=== PATIENT | male | born 1950 | race Caucasian/White ===

== ENCOUNTER → 2019-02-10 18:27 | Outpatient (CLI) | payer MEDICARE | END | disposition home or self-care (01) | LOC: D.LABREF 18:27 | PROVIDERS: ATTEND Urology | DX: R31.9 Hematuria, unspecified (principal) ==

== ENCOUNTER → 2019-03-11 10:00 | Outpatient (CLI) | payer MEDICARE ==
[~2019-03-11 10:00] MED LIST: CYCLOBENZAPRINE10 MG PO; DICLOFENAC SODI50 MG; FLUTICASONE PRO16 GM; LIPITOR20 MG PO; LISINOPRIL20 MG; MOBIC7.5 MG PO; MUCINEX600 MG PO; NORVASC10 MG PO; NYSTATIN ORAL SU5 ML PO; OMEPRAZOLE20 M1 PO; PERCOCET 10-321 EAC1 PO; TRAZODONE HCL150 MG PO; ZANAFLEX2 M1 PO
== END | disposition home or self-care (01) ==
LOC: D.CT 10:00
PROVIDERS: ATTEND Urology
DX: R31.0 Gross hematuria (principal)

== ENCOUNTER 2019-03-13 05:35 | Day surgery (SDC) | payer MEDICARE, OTHER ==
[2019-03-12 13:37] LABS: HEMATOCRIT 38.4 % (42.0-54.0); HEMOGLOBIN 12.9 g/dL (13.5-17.5); MCH 30.6 pg (26.0-34.0); MCHC 33.6 g/dL (31.0-37.0); MEAN PLATELET VOLUME 9.4 fL (7.4-10.4); RBC 4.22 10x6/uL (4.20-6.10); RDW 12.9 % (11.5-14.5); WBC 10.2 10x3/uL (4.8-10.8)
[~2019-03-13] VITALS: Ht 170.2 cm; Wt 81.2 kg
[~2019-03-13 05:35] MED LIST changes: -FLUTICASONE PRO16 GM; -MUCINEX600 MG PO; -NYSTATIN ORAL SU5 ML PO; -PERCOCET 10-321 EAC1 PO; -ZANAFLEX2 M1 PO
[2019-03-13] MEDS ORDERED: ZANAFLEX2 M1 PO (06:22)
[2019-03-13] MEDS ORDERED: FLUTICASONE PRO16 GM (06:23)
[2019-03-13] MEDS ORDERED: PERCOCET 10-321 EAC1 PO (06:25)
[2019-03-13] MEDS ORDERED: NYSTATIN ORAL SU5 ML PO (06:26)
[2019-03-13] MEDS ORDERED: MUCINEX600 MG PO (06:27)
[2019-03-13 06:57] VITALS: Ht 170.2 cm; Wt 81.2 kg
--- NOTE | 2019-03-13 12:10 | NUR ---
1131-REC'D FROM RR. AWAKE AND ALERT,DENIES PAIN.VSS.02 @2L/NC.RESP EVEN NON LABORED, NO DISTRESS. ICE WATER AT BEDSIDE.REVIEWED DISCHARGE CRITERIA.VERBALIZED UNDERSTANDING.CL IN EASY REACH,FRIEND AT BEDSIDE.
--- NOTE | 2019-03-13 12:12 | NUR ---
1145-FULL LIQUID TRAY TO ROOM.
--- NOTE | 2019-03-13 12:12 | NUR ---
1155-02 REMOVED. DENIES PAIN,RESP EVEN NON LABORED,
--- NOTE | 2019-03-13 12:12 | NUR ---
1200-VSS.DENIES PAIN.VÁSQUEZ PATENT DRAINING RED URINE BY GRAVITY. IV PATENT TO RIGHT HAND AT KVO.PLEASANT WITHOUT COMPLAINTS.TOLERATED FOOD TRAY. CL IN EASY REACH.FRIEND AT BEDSIDE.
--- NOTE | 2019-03-13 13:30 | OP ---
PATIENT NAME: LÁZARO REDMAN MEDICAL RECORD: [id number] :48 LOCATION:D.OPS ADMISSION DATE: SURGEON: OTTO AVILA MD DATE OF OPERATION: 03/13/2019 SURGEON: Otto Avila MD ANESTHESIA: General anesthesia by Renato Granda CRNA DIAGNOSES: 1. A 5 mm left distal ureteral stone. 2. A 1 cm papillary bladder tumor. 3. Obstructive BPH. PROCEDURES: 1. Cystoscopy, bilateral retrograde pyelogram, left ureteroscopy and stone extraction, left ureteral stent insertion 6-Tristanian x 26 cm with string attached. 2. Bladder tumor resection. 3. UroLift times 8 units deployed, 4 units held in box configuration around the bladder neck. FINDINGS: Obstructive bladder neck. No significant lateral lobe hyperplasia. There was a radiodense left distal ureteral stone on fluoroscopy. Within the bladder, there is a 1 cm papillary bladder tumor on the dome of the bladder. There are single ureteral orifices bilaterally without any hydroureteronephrosis and no filling defects on retrograde pyelogram. ESTIMATED BLOOD LOSS: None. CLINICAL HISTORY: This is a 68-year-old male, who was seen for painless gross hematuria. He is a smoker. At his last visit, he had a urinary tract infection, which was treated with Levaquin. He has obstructive voiding symptoms including urinary frequency and urge incontinence. He wished to have the UroLift procedure done to relieve this. He had a CT scan of the abdomen and pelvis performed. This shows a right renal mass, which I will treat eventually with cryoablation. He also has a 1 cm bladder tumor noted on the CT scan. Finally, the CT scan shows a 5-mm stone lodged in the left distal ureter. He was originally scheduled just for the UroLift procedure, but based on the CT findings we are going to address all of his issues except for the renal mass in this setting. He is allergic to no medications. We gave him Levaquin IV cotton grader to the OR. DESCRIPTION OF PROCEDURE: The patient was given induction of general anesthesia. He was then placed in the lithotomy position and prepped and draped. The cystoscope was introduced. We used a 21-Tristanian cystoscope with 30-degree lens. No urethral strictures were seen. The prostatic lateral lobes are not obstructive. He does have a tall bladder neck. Going into the bladder, the papillary bladder tumor is seen on the dome of the bladder. No other bladder tumors were seen. He has single ureteral orifices on each side. I can actually see the stone in the left ureteral orifice. We used an open-ended ureteral catheter, 5-Tristanian. A retrograde pyelogram was done bilaterally with diluted contrast. No hydroureteronephrosis was seen. No filling defects were seen except on the left side where the stone was visible. On the left side, we inserted a Sensor wire up to the renal pelvis. The open-ended ureteral catheter was then removed. Because of the stone being right at the UV junction, I OPERATIVE REPORT [id number] LÁZARO REDMAN decided not to use a balloon dilator on the UV junction as this has the risk of pushing the stone into the wall of the ureter. Instead, the scope was removed and the rigid ureteroscope was introduced. The stone was seen. A 4-wire 0-tip basket was placed around the stone and the stone was entirely removed. The stone was sent to pathology for stone analysis. We then backloaded the wire onto the cystoscope. Through the scope, we inserted a 6-Tristanian x 26 cm ureteral stent. Once the stent was in correct position, the wire was withdrawn entirely. The stent was then pushed into the bladder using the pusher. The string on the distal end of stent was maintained and it hangs out of the urethra. I then switched to the cold cup biopsy forceps. Because of the location of the tumor on the dome of the bladder, I did not wish to use a resectoscope as this would increase the risk of perforation of the bladder. Using the cold cup biopsy forceps, I removed the entire bladder tumor in pieces. The base of the tumor where it had been was coagulated using the Bugbee electrode. The cystoscope was then removed. We then introduced the UroLift scope. We intended to place a bladder neck box configuration of units. Two units were placed at the mid urethral level 1.5 cm distal to the bladder neck. One unit was placed on each side. These held without any issues. At the anterolateral sulcus level, 1.5 cm distal to the bladder neck I kept hitting bone. Finally, I got 2 units to hold. The bone strikes multiply on both sides resulted in loss of 4 units, which we deployed, but the units would not hold. The bladder neck was now open. Because of the bladder tumor resection and the stent being placed, I placed a 16-Tristanian Agarwal catheter into the patient. The balloon was inflated with 10 cc of sterile water. The patient will be going home today. He already has Standish 10 given to him by another doctor. I will see him in followup next Sunday at the [facility] to remove the Agarwal catheter and the stent. TRANSINT:[id number] Voice Confirmation ID: [id number] DOCUMENT ID: [id number] OTTO AVILA MD at 1330 CC: [id number] DICTATION DATE: 03/13/19 1105 MANUFACTURING ELECTRICIAN: 03/13/19 1218 [id number] [place] [address]
--- NOTE | 2019-03-13 14:33 | NUR ---
1235-DISCHARGE CRITERIA MET. REMOVED IV FROM RIGHT HAND WITH CATH INTACT,DISPOSED INTO SHARPS,COVERED SITE WITH GUAZE,SECURED WITH MEDIPORE TAPE. REVIEWED POST OPERATIVE INSTRUCTIONS, FOLLOW UP APPOINTMENT AND VÁSQUEZ CATH CARE.VERBALIZED UNDERSTANDING.VSS.DENIES PAIN. VÁSQUEZ PATENT DRAINING RED URINE BY GRAVITY.
--- NOTE | 2019-03-13 14:35 | NUR ---
1243-PT DRESSED. ESCORTED OUT VIA W/C WITH FRIEND AWAITING TO DRIVE HOME.DISCHARGE PAPERWORK IN HAND. DENIES COMPLAINTS..
== END 2019-03-13 12:43 | disposition home or self-care (01) ==
LOC: D.OPS 05:35 → D.PAN 07:30 → D.OPS 07:30 → D.PAN 08:05 → D.OPS 08:15
PROVIDERS: Anesthesiology; ATTEND Urology
DX: N20.1 Calculus of ureter (principal); D41.4 Neoplasm of uncertain behavior of bladder; N40.1 Benign prostatic hyperplasia with lower urinary tract symptoms; N13.8 Other obstructive and reflux uropathy
CPT/HCPCS: 52234; 52332; 52320; C9740